=== PATIENT | female | born 1965 | race Caucasian/White ===

== ENCOUNTER 2022-10-24 11:53 | Inpatient (IN) | payer OTHER ==
[~2022-10-24] VITALS: Ht 160 cm; Wt 112.3 kg
[2022-10-24 12:46] LABS: Albumin, Blood 2.8 g/dL (3.4-5.0); Albumin/Globulin Ratio 0.6 (0.8-1.8); Bilirubin, Total 0.7 mg/dL (0.1-1.0); Bun/Creatinine Ratio 7.2 (12.0-20.0); Calcium, Blood 9.3 mg/dL (8.5-10.1); Creatinine, Blood 1.38 mg/dL (0.40-1.00); Globulin, Blood 4.4 g/dL (2.2-4.0); Potassium, Blood 3.5 mmol/L (3.5-5.5); Total Protein, Blood 7.2 g/dL (6.4-8.2)
[2022-10-24 12:48] LABS: BASOPHILS ABSOLUTE AUTO 0.08 K/mm3 (0.00-0.23); BASOPHILS PERCENT AUTO 1 % (0-2); EOSINOPHILS ABSOLUTE AUTO 0.49 K/mm3 (0.00-0.68); EOSINOPHILS PERCENT AUTO 3 % (0-6); Hemoglobin 10.4 g/dL (11.5-16.0); IMMATURE GRAN ABSOLUTE AUTO 0.09 K/mm3 (0.00-0.10); IMMATURE GRAN PERCENT AUTO 1 % (0-1); LYMPHOCYTES ABSOLUTE AUTO 2.61 K/mm3 (0.84-5.20); LYMPHOCYTES PERCENT AUTO 17 % (21-46); MONOCYTES ABSOLUTE AUTO 1.48 K/mm3 (0.16-1.47); MONOCYTES PERCENT AUTO 10 % (4-13); Mean Corpuscular HGB Conc 32.5 g/dL (31.5-36.5); Mean Corpuscular Volume 99 fL (80-100); Mean Platelet Volume 11.8 fL (9.1-12.4); NEUTROPHILS ABSOLUTE AUTO 10.49 K/mm3 (1.96-9.15); NEUTROPHILS PERCENT AUTO 69 % (41-73); Platelet Count 331 K/mm3 (150-400); RDW Coefficient Variation 13.5 % (11.7-14.2); RDW Standard Deviation 48.2 fL (35.1-46.3); Red Blood Cell Count 3.25 M/mm3 (3.80-5.20); White Blood Cell Count 15.24 K/mm3 (4.00-11.30)
[2022-10-24 14:01] LABS: CPK Creatine Kinase 75 U/L (26-193); Ethanol (Alcohol), Blood, Med <3 mg/dL
[2022-10-24] MEDS ORDERED: ACET500 PO (14:43)
[2022-10-24] MEDS ORDERED: ACYC400 PO (14:44)
[2022-10-24] MEDS ORDERED: ASCO500 PO (14:44)
[2022-10-24] MEDS ORDERED: ATOR20 PO (14:44)
[2022-10-24] MEDS ORDERED: Voltaren100 GM TOP (14:45)
[2022-10-24] MEDS ORDERED: FERSU300 PO (14:45)
[2022-10-24] MEDS ORDERED: Prozac20 MG PO (14:46)
[2022-10-24] MEDS ORDERED: FOLI1 PO (14:51)
[2022-10-24] MEDS ORDERED: LOREEV XR2 MG PO (14:53)
[2022-10-24] MEDS ORDERED: LOSA25 PO (14:54)
[2022-10-24] MEDS ORDERED: MAGNESIUM OXID500 MG PO (14:54)
[2022-10-24] MEDS ORDERED: LORA.5 PO (14:54)
[2022-10-24] MEDS ORDERED: MESA250ER PO (14:55)
[2022-10-24] MEDS ORDERED: ARTIFICIAL TEAR15 M2 (14:56)
[2022-10-24] MEDS ORDERED: OMEP20ER PO (14:56)
[2022-10-24] MEDS ORDERED: TRAZ50 PO (14:57)
[2022-10-24 15:39] LABS: Source, Urine Straight Cath
[2022-10-24 15:47] LABS: Bilirubin, Urine Neg (Neg); Blood, Urine Neg (Neg); Color, Urine Yellow (P-Yellow); Glucose Qualitative, Urine Neg (Neg); Ketones, Urine Neg (Neg); Leukocyte Esterase, Urine 1+ (Neg); Nitrite, Urine Neg (Neg); Protein, Urine 2+ (Neg); Urobilinogen, Urine NORM (Normal)
[2022-10-24 16:03] LABS: U Amphetamine Screen Not Detected; U Barbituate Screen Not Detected; U Benzodiazapine Screen DETECTED; U Buprenorphine Screen Not Detected; U Cannabinoids Screen Not Detected; U Cocaine Screen Not Detected; U Methadone Screen Not Detected; U Methamphetamine Screen Not Detected; U Opiates Screen Not Detected; U Oxycodone Screen Not Detected; U Phencyclidine Screen Not Detected; U Propoxyphene Screen Not Detected
[2022-10-24 16:06] LABS: Appearance, Urine Clear (Clear)
[2022-10-24 16:22] LABS: Bacteria Mod /hpf; Red Blood Cells, Urine Not Seen /hpf (0-2); Squamous Epithelial Cells Mod /hpf (Few); Transitional Epithelial Cells Rare /hpf (0-Rare)
--- NOTE | 2022-10-24 19:02 | NUR ---
1845 RECEIVED PT FROM ED, REPORT FROM THOR, PT RESPONDS TO PAIN. JERKING, REPORT GIVEN TO ONCOMING NURSE. UNKNOWN BASELINE.
[2022-10-25 05:16] LABS: Hematocrit 34.6 % (33.0-51.0); Hemoglobin 11.2 g/dL (11.5-16.0); Mean Corpuscular HGB 32.3 pg (26.0-34.0); Mean Corpuscular HGB Conc 32.4 g/dL (31.5-36.5); Mean Corpuscular Volume 100 fL (80-100); Mean Platelet Volume 11.4 fL (9.1-12.4); Platelet Count 311 K/mm3 (150-400); RDW Coefficient Variation 13.3 % (11.7-14.2); RDW Standard Deviation 49.1 fL (35.1-46.3); Red Blood Cell Count 3.47 M/mm3 (3.80-5.20); White Blood Cell Count 14.24 K/mm3 (4.00-11.30)
--- NOTE | 2022-10-25 05:29 | NUR ---
SHIFT SUMMARY PT IS A&03 BOUTS OF MILD CONFUSION, VERY SLEEPY OVERNIGHT, 2 PERSON TO BSC, RA, VSS, NO COMPLAINT OF DISCOMFORT OVERNIGHT, APPROPRIATE WITH CARE, FIRE IGNITION EDUCATION PROVIDED CONTINUE POC
[2022-10-25 06:03] LABS: Albumin, Blood 2.8 g/dL (3.4-5.0); Albumin/Globulin Ratio 0.6 (0.8-1.8); Bilirubin, Total 0.4 mg/dL (0.1-1.0); Bun/Creatinine Ratio 8.5 (12.0-20.0); Calcium, Blood 9.2 mg/dL (8.5-10.1); Creatinine, Blood 1.06 mg/dL (0.40-1.00); Globulin, Blood 4.6 g/dL (2.2-4.0); Potassium, Blood 3.9 mmol/L (3.5-5.5); Total Protein, Blood 7.4 g/dL (6.4-8.2)
[2022-10-25 07:34] VITALS: BP 142/86
[2022-10-25 16:08] VITALS: BP 123/90
--- NOTE | 2022-10-25 16:49 | NUR ---
SHIFT SUMMARY- PT IS ALERT AND CONFUSED. CALM AND COOPERATIVE. HAS NOT BEEN OUT OF BED. PT DOES NOT REMEMBER HER BASELINE. CIWA 14. TREATED PER EMAR. R/A. PT DENIES HAVING ANY INGNITION SOURCES WITH HER. EDCUATION PROVIDED ON RISKS OF INJURY OF HAVING IGNITION SOURCES CLOSE TO OXYGEN.
[2022-10-25 19:53] VITALS: BP 89/73
[2022-10-25 20:43] VITALS: BP 120/104
[2022-10-26 03:16] VITALS: BP 132/79
--- NOTE | 2022-10-26 05:01 | NUR ---
SHIFT SUMMARY 57 YR F ADMITTED ON 10/24/22 FOR AMS. FULL CODE. NO ACUTE CHANGES THIS SHIFT. PT HAS SLEPT FOR MOST OF THIS SHIFT AND HAS BEEN PLEASANT AND COOPERATIVE WITH CARE DURING THE TIME SHE WAS AWAKE. SHE HAS SHOWN NO S/S OF WITHDRAWL. SHE ANSWERED QUESTIONS APPROPRIATELY. PT'S SISTER CALLED AND SPOKE W/ THIS NURSE REGARDING PT CONDITION AND BEHAVIOR. SHE STATED THAT SHE DID NOT BELEIVE PT HAD LUCID MOMENTS BECAUSE SHE HAD SEEN HER EARLIER IN THE DAY AND PT WAS CONFUSED AT THAT TIME. SISTER STED THAT THE PT'S PARENTS WOULD BE COMING IN TODAY TO SPEAK WITH THE DOCTOR REGARDING PT'S CONDITION.
[2022-10-26 06:34] LABS: BASOPHILS ABSOLUTE AUTO 0.06 K/mm3 (0.00-0.23); BASOPHILS PERCENT AUTO 1 % (0-2); EOSINOPHILS ABSOLUTE AUTO 0.44 K/mm3 (0.00-0.68); EOSINOPHILS PERCENT AUTO 3 % (0-6); Hematocrit 33.7 % (33.0-51.0); Hemoglobin 11.2 g/dL (11.5-16.0); IMMATURE GRAN ABSOLUTE AUTO 0.07 K/mm3 (0.00-0.10); IMMATURE GRAN PERCENT AUTO 1 % (0-1); LYMPHOCYTES ABSOLUTE AUTO 2.46 K/mm3 (0.84-5.20); LYMPHOCYTES PERCENT AUTO 19 % (21-46); MONOCYTES ABSOLUTE AUTO 1.01 K/mm3 (0.16-1.47); MONOCYTES PERCENT AUTO 8 % (4-13); Mean Corpuscular HGB Conc 33.2 g/dL (31.5-36.5); Mean Corpuscular Volume 96 fL (80-100); NEUTROPHILS ABSOLUTE AUTO 8.78 K/mm3 (1.96-9.15); NEUTROPHILS PERCENT AUTO 69 % (41-73); RDW Coefficient Variation 13.5 % (11.7-14.2); RDW Standard Deviation 47.3 fL (35.1-46.3); White Blood Cell Count 12.82 K/mm3 (4.00-11.30)
[2022-10-26 07:42] VITALS: BP 121/99
[2022-10-26 08:19] LABS: Mean Platelet Volume 11.6 fL (9.1-12.4); Platelet Count 328 K/mm3 (150-400)
[2022-10-26 10:18] LABS: Calcium, Blood 9.7 mg/dL (8.5-10.1); Creatinine, Blood 1.15 mg/dL (0.40-1.00); Magnesium, Blood 1.7 mg/dL (1.6-2.4); Phosphorus, Blood 3.5 mg/dL (2.5-4.9); Potassium, Blood 3.6 mmol/L (3.5-5.5)
[2022-10-26 13:08] LABS: Thyroid Stimulating Hormone 4.8 uIU/mL (0.360-4.800)
[2022-10-26 15:03] VITALS: BP 124/83
[2022-10-26 19:46] VITALS: BP 112/66
--- NOTE | 2022-10-27 04:11 | NUR ---
SHIFT SUMMARY 57 YR F ADMITTED ON 10/24/22 FOR AMS. FULL CODE. PT BECAME INCREASINGLY FIDGETY THIS SHIFT AND CONTINUALLY PULLED ON HER PUREWICK AND BRIEF. SHE SHREDDED THE BRIEF BY GRABBING AND PULLING AT IT AND PULLED HER PUREWICK OUT AND HAD IT LAYING ON THE PILLOW ABOVE HER HEAD. SHE APPEARED TO BE UNABLE TO HOLD STILL AND WAS DIAPHORETIC. SHE WAS SAYING RANDOM THINGS THAT DID NOT MAKE SENSE AND KEPT SAYING THAT HER FAMILY "WAS GOING WITHOUT HER SO SHE NEEDED TO GET READY". A CIWA WAS DONE WITH A SCORE OF 14 AND ATIVAN WAS GIVEN PER PERAMETERS. SHE WAS GIVEN A TOTAL OF 6 MG OVER APPROX 4 HOURS BEFORE SHE FINALLY FELL ASLEEP. THIS NURSE SPOKE W/ PT'S SISTER, MALORIE, AND GAVE AN UPDATE ON PT CONDITION. SHE EXPRESSED FRUSTRATION THAT "THEY" COULD NOT FIGURE OUT WHAT IS WRONG WITH HER SISTER, AND THAT THIS NURSE WAS NOT ABLE TO ACCESS THE PT'S RECORDS FROM THE HOSPITAL IN [place]. FINALLY SETTLED DOWN AND FELL ASLEEP.
[2022-10-27 07:11] LABS: IRON BIND.CAP.(TIBC) 242 ug/dL (250-450); IRON SATURATION 21 % (15-55); IRON, SERUM 51 ug/dL (27-159); UIBC 191 ug/dL (131-425)
[2022-10-27 08:11] LABS: FERRITIN 565 ng/mL (15-150)
[2022-10-27 08:26] VITALS: BP 148/84
--- NOTE | 2022-10-27 13:20 | NUR ---
SPOKE WITH BUILD AUTOMATION ENGINEER, SETH AT [facility], WHO IS GOING TO FAX H&P, DC SUMMARY AND LABS AND IMAGING REPORTS FOR HOSPITALIZATION STARTING 10/16/22.
--- NOTE | 2022-10-27 15:55 | NUR ---
SPOKE WITH SOSA AT [facility]; CANDIE HAD BEEN ADMITTED TO THEIR [facility] AND WENT TO [facility] FOR HYPOTENSIVE EPISODE. SHE WILL FAX RECORDS FROM CANDIE'S STAY TO [facility].
--- NOTE | 2022-10-27 16:50 | NUR ---
SISTER, SCOUT, CALLED FOR UPDATE. LET HER KNOW CANDIE HAS BEEN SLEEPING ALL DAY AND LET HER KNOW RECORDS OBTAINED FROM [place] AND [facility].
[2022-10-27 18:02] VITALS: BP 140/128
--- NOTE | 2022-10-27 18:15 | NUR ---
DAY SHIFT SUMMARY: HAS SLEPT ENTIRETY OF SHIFT. ABLE TO AROUSE, THOUGH CONTINUES TO BE DROWSY AND NON-SENSICAL WHEN AWAKE. PER DR COLES, PO MEDICATIONS HELD TODAY D/T DROWSINESS. SPOKE WITH SISTER, SCOUT, TWICE, WITH UPDATES. RECEIVED RECORDS FROM [facility]. NOTIFIED DR COLES AND PLACED IN PATIENT CHART. RECORDS REQUESTED FROM [facility] BUT HAVE NOT YET BEEN RECEIVED. VITAL SIGNS HAVE BEEN STABLE WITH THE EXCEPTION OF AN
[2022-10-27 18:46] VITALS: BP 148/79
[2022-10-27 19:54] VITALS: BP 130/82
--- NOTE | 2022-10-27 22:00 | NUR ---
PURE WIC REPLACED AND REPOSITIONED. OBSERVED X2 RED EXCORIATED PATCHES TO INNER LEFT LABIA AND POSITIONED PUREWIC SO SUCTION DOESN'T TOUCH OR APPLY PRESSURE TO THE AREA. PT PREFERS IT LEFT IN PLACE D/T INCONTINENCE, HEAVY WETTER, UNABLE TO WT.BEAR AT PRESENT AND EXCORIATION TO BUTTOCKS/GLUTEAL FOLD.
[2022-10-28 04:14] VITALS: BP 135/73
--- NOTE | 2022-10-28 05:11 | NUR ---
SUMMARY: PT A/O TO SELF, "HOSPITAL" AND MONTH/YEAR BUT THOUGHT WE WERE IN [place], REMINDERS PROVIDED PRN. BED ALARM REMAINS ON FOR FALL RISK AND POSSIBLE IMPULSIVITY. CIWA WAS 3-5 AND NO PRN MEDS WERE REQUIRED. SHE'S VERY WEAK SO REMAINS BEDREST AT PRESENT W/TURN SCHEDULE MAINTAINED. PT REMAINS DROWSY BUT WAS WAKEFUL TONIGHT AND ABLE TO SPECIFY NEEDS WHEN STAFF IN ROOM. SHE'S PLEASANT AND COOPERATIVE W/CARE AND ATTEMPED TO ASSIST W/REPOSITIONING. EXCORIATION OBSERVED TO BUTTOCKS, GLUTEAL FOLD AND L.INNER LABIA. PUREWIC CATH REPLACED AND POSITIONED TO ENSURE SUCTION/PRESSURE IS AVOIDED TO EXCORIATED AREAS. STAFF OFFERED REMOVAL BUT PT PREFERS IT D/T FREQ INCONTINENCE, HEAVY WETTING AND MOISTURE REDUCTION. MEPILEX REMAINS C/D/I TO R.CALF SORE AND HEALS ARE FLOATED FOR SBD PREVENTION. NO ACUTE CHANGES, VSS/AFEBRILE. IGNITION RISK EDUCATION AND ASSESSMENT COMPLETED. WCTM AND REPORT TO DAY RN.
[2022-10-28 07:17] VITALS: BP 124/88
--- NOTE | 2022-10-28 15:33 | NUR ---
DAUGHTER SCOUT PHONE NUMBER IN HARD CHART
[2022-10-28 16:51] VITALS: BP 108/66
--- NOTE | 2022-10-28 17:24 | NUR ---
SHIFT SUMMARY: PT A&O X2 THIS SHIF. PT ABLE TO STATE NAME/ AND ABLE TO TALK ABOUT FAMILY. PT BELIEVED SHE WAS IN [place] AND UNABLE TO STATE REASON FOR ADMISSION. PT PLEASANT AND COOPERATIVE WITH ALL CARE. PT HAD PT/OT EVAL THIS SHIFT TO DETERMINE IF PT COULD RETURN [place] NEED FOR SNF. PT UNABLE TO STAND WITH WALKER AT BEDSIDE BUT CONTINUED TO ATTEMPT WITH MOTIVATION. PT HAS MANY OPEN SORES AND RED AREAS/SCRATCHES THROUGHOUT BODY. LOTION AND NEW MEPILEXES APPLIED TO NEEDED AREAS. PT INCONTINENT TO BOWEL AND BLADDER. PUREWICK IN PLACE. ATIVAN GIVEN TWICE PER EMAR/CIWA. PT SLIGHTLY ANXIOUS WITH TREMORS. PT BELIVES HER DOGS "ARE DOWNSTAIRS" TWICE THIS SHIFT. BED ALARM REMAINS ON. CALL LIGHT IN REACH. BED IN LOWEST POSITION. WILL CONTINUE TO MONITOR.
[2022-10-28 19:24] VITALS: BP 132/71
[2022-10-29 04:18] VITALS: BP 150/93
--- NOTE | 2022-10-29 04:59 | NUR ---
SHIFT SUMMARY PT VERY SLEEPY AT BEGINNING OF SHIFT. PREVIOUS NURSE STATED SHE HAD GIVEN HER ATIVAN A COUPLE OF TIMES AND HAS BEEN SLEEPING SINCE THE LAST DOSE. PT ABLE TO AROUSE, BUT VERY DROWSY AND FALLS BACK TO SLEEP MID QUESTION. PT ABLE TO WAKE UP ENOUGH TO TAKE HER NIGHT TIME MEDICATIONS. CIWAS 1 THE REMAINDER OF THE NIGHT. PT FINALLY WOKE UP AROUND 0400 AND WAS AAOX4, WITH NO COMPLAINTS. PT STATED SHE FELT RESTED AND MUCH BETTER. CIWAS STILL 1. WILL CONTINUE TO MONITOR. Q1H FIRE SAFETY CHECKS COMPLETED WITH NO IGNITION SOURCES FOUND
[2022-10-29 05:43] LABS: BASOPHILS ABSOLUTE AUTO 0.08 K/mm3 (0.00-0.23); BASOPHILS PERCENT AUTO 1 % (0-2); EOSINOPHILS ABSOLUTE AUTO 0.59 K/mm3 (0.00-0.68); EOSINOPHILS PERCENT AUTO 4 % (0-6); Hematocrit 32.9 % (33.0-51.0); Hemoglobin 10.7 g/dL (11.5-16.0); IMMATURE GRAN ABSOLUTE AUTO 0.05 K/mm3 (0.00-0.10); IMMATURE GRAN PERCENT AUTO 0 % (0-1); LYMPHOCYTES ABSOLUTE AUTO 2.62 K/mm3 (0.84-5.20); LYMPHOCYTES PERCENT AUTO 18 % (21-46); MONOCYTES ABSOLUTE AUTO 1.13 K/mm3 (0.16-1.47); MONOCYTES PERCENT AUTO 8 % (4-13); Mean Corpuscular HGB 31.9 pg (26.0-34.0); Mean Corpuscular HGB Conc 32.5 g/dL (31.5-36.5); Mean Corpuscular Volume 98 fL (80-100); NEUTROPHILS ABSOLUTE AUTO 9.82 K/mm3 (1.96-9.15); NEUTROPHILS PERCENT AUTO 69 % (41-73); Platelet Count 341 K/mm3 (150-400); RDW Coefficient Variation 13.6 % (11.7-14.2); RDW Standard Deviation 49.2 fL (35.1-46.3); Red Blood Cell Count 3.35 M/mm3 (3.80-5.20); White Blood Cell Count 14.29 K/mm3 (4.00-11.30)
[2022-10-29 06:39] LABS: Bun/Creatinine Ratio 9.8 (12.0-20.0); Calcium, Blood 9.3 mg/dL (8.5-10.1); Creatinine, Blood 1.12 mg/dL (0.40-1.00); Potassium, Blood 3.7 mmol/L (3.5-5.5)
[2022-10-29 07:32] VITALS: BP 115/85
--- NOTE | 2022-10-29 12:17 | NUR ---
IGNITION RISK EDUCATION AND ASSESSMENT COMPLETED.
--- NOTE | 2022-10-29 14:51 | NUR ---
SISTER, SCOUT, PHONE NUMBER [phone]
[2022-10-29 15:40] VITALS: BP 111/88
--- NOTE | 2022-10-29 16:23 | NUR ---
SHIFT SUMMARY PT AOX1-2, IT WAXES AND WANES. BED BATH COMPLETED THIS SHIFT, MEPALEX TO COCCYX AND R LEG CHANGED AND ARE CDI. PT WORKED WITH PT AND OT TODAY, THEY WERE UNABLE TO GET HER TO STAND. PLAN IS FOR HER TO GO [place] [facility] FOR REHABILITATION. SPOKE WITH HER SISTER, SCOUT, TODAY AND PASSED ALONG THE DESIRE FOR COMMUNICATION WITH DR. COLES. PT HAS A BUSY BLANKET AND IT PROVIDES HER RELIEF AND SHE HAS BEEN USING IT ALL SHIFT. BED IN THE LOWEST POSITION, CALL LIGHT WITHIN REACH. WILL REPORT TO ONCOMING NURSE.
[2022-10-29 21:17] VITALS: BP 133/77
[2022-10-30 04:08] VITALS: BP 136/80
--- NOTE | 2022-10-30 04:15 | NUR ---
SHIFT SUMMARY; NO ACUTE CHANGES OVERNIGHT. THE PT WAS DROWSY AT THE BEGINNING OF THE SHIFT BUT IS MORE ALERT THIS MORNING. THE PT IS AXO X2-3 THIS AM. THE PT KNOWNS SHES IN [place] AND KNOWS WHO SHE IS BUT IS OTHERWISE UNABLE TO ANSWER ORIENTATION QUESTIONS. THE PT HAS BEEN IN BED FOR THE DURATION OF THE NIGHT. PRN CIWAS DONE, THE PATIENTS SCORE DID NOT EXCEED A 2. THE PT DENIES ANY SOB, CHEST PAIN/PRESSURE, N/V OR PAIN THIS SHIFT. CURRENTLY THE PT IS SLEEPING IN BED WITH THE BED IN THE LOWEST POSITION AND THE CALL LIGHT AT BEDSIDE.
--- NOTE | 2022-10-30 04:29 | NUR ---
FIRE SAFETY MAINTAINED T/O SHIFT, IGNITION SOURCE EDUCATION PROVIDED AND FIRE RISK ASSESSED.
[2022-10-30 07:59] VITALS: BP 115/84
[2022-10-30 10:06] LABS: SARS-Cov-2 (COVID-19) PCR, MMC NEGATIVE (NEGATIVE)
--- NOTE | 2022-10-30 12:22 | NUR ---
FIRE SAFETY SUSTAINED T/O THE SHIFT. IGNITION SOURCES IDENTIFIED AND EDUCATINO PROVIDED TO THE PT.
[2022-10-30 15:36] VITALS: BP 105/77
--- NOTE | 2022-10-30 17:46 | NUR ---
SHIFT SUMMARY NO ACUTE CHANGES. PT IS MORE ALERT THIS SHIFT, ANSWERING QUESTIONS APPROPRIATELY AND WORKING WELL WITH PT/OT. PLAN IS FOR HER TO DISCHARGE TO [facility] TOMORROW. PT HAS HAD NO COMPLAINTS. SHE HAS IMPROVED A LOT TODAY. PT REALLY ENJOYS USING HER BUSY BLANKET. CALL LIGHT WITHIN REACH, BED IN THE LOWEST POSITION. WILL REPORT TO ONCOMING NURSE.
[2022-10-30 19:19] VITALS: BP 115/85
[2022-10-31 02:49] VITALS: BP 133/87
--- NOTE | 2022-10-31 05:13 | NUR ---
SHIFT SUMMERY, PT CONFUSED AND HALLUCINATING DURING SHIFT. PT WANTING TO GET OUT OF BED TO LEAVE, PT THOUGHT SHE SAW SOMEONE LAYING ON THE FLOOR. THOUGHT A FAMILY MEMBER HAD AND THOUGH THE ROOM HAD SNAKES ON THE FLOOR. PT WAS SUPPOESD TO BE HAVING A SLEEP STUDDY BUT PT PULLING OFF SAT MONITOR SEVERAL TIMES. KAMLESH ZAVALETA REVIEWED CALL LIGHT IN REACH BED ALARM ON.
[2022-10-31 07:30] VITALS: BP 118/80
--- NOTE | 2022-10-31 09:46 | NUR ---
TELEPHONE REPORT GIVEN TO VIVIAN ARCEO AT DC. PATIENT TO BE PICKED UP BY JENNY AT 10:00.
--- NOTE | 2022-10-31 11:45 | NUR ---
PATIENT DISCHARGED TO [place] [facility]. OFF UNIT VIA [facility] AT 1139. IV SALINE LOCK REMOVED.
== END 2022-10-31 11:38 | DRG 896 ==
LOC: ER 11:53 → MEDS 18:34 → ENPENDDIS 10-30 09:51 → MEDS 10-31 11:38
PROVIDERS: Emergency Medicine; Internal Medicine; Nurse Practitioner Acute Care; Student in an Organized Health Care Education/Training Program; ADMIT Internal Medicine
PROC: HZ2ZZZZ Detoxification Services for Substance Abuse Treatment (ICD-10-PCS; principal; 2022-10-31)
DX: F10.231 Alcohol dependence with withdrawal delirium (principal); G92.8 Other toxic encephalopathy; N39.0 Urinary tract infection, site not specified; N17.9 Acute kidney failure, unspecified; E51.2 Wernicke's encephalopathy; Z68.41 Body mass index [BMI] 40.0-44.9, adult; B95.2 Enterococcus as the cause of diseases classified elsewhere; F13.231 Sedative, hypnotic or anxiolytic dependence with withdrawal delirium; E78.5 Hyperlipidemia, unspecified; F32.A Depression, unspecified; K21.9 Gastro-esophageal reflux disease without esophagitis; R21 Rash and other nonspecific skin eruption; D63.1 Anemia in chronic kidney disease; Y90.0 Blood alcohol level of less than 20 mg/100 ml; I12.9 Hypertensive chronic kidney disease with stage 1 through stage 4 chronic kidney disease, or unspecified chronic kidney disease; N18.30 Chronic kidney disease, stage 3 unspecified; E66.9 Obesity, unspecified; E83.42 Hypomagnesemia; Z20.822 Contact with and (suspected) exposure to COVID-19; N28.9 Disorder of kidney and ureter, unspecified; Z71.41 Alcohol abuse counseling and surveillance of alcoholic; Z71.51 Drug abuse counseling and surveillance of drug abuser; Z88.0 Allergy status to penicillin; Z88.1 Allergy status to other antibiotic agents; Z88.5 Allergy status to narcotic agent; Z88.2 Allergy status to sulfonamides; Z79.899 Other long term (current) drug therapy
CPT/HCPCS: 36415; 51701; 70450; 71045; 80048; 80053; 81001; 82550; 82607; 82728; 82746; 82947; 83540; 83550; 83735; 84100; 84443; 85025; 85027; 85049; 86592; 87077; 87086; 87186; 96361; 96365; 96366; 96368; 96375; 97110; 97162; 97166; 97530; 97535; 99285-25; A9270; G0480; J0696; J1650; J2060; J3411; J3475; J3480; J7030; J7050; J7120; U0002